=== PATIENT | female | born 1980 | race African-American/Black ===

== ENCOUNTER 2018-12-26 21:00 | Emergency (ER) | payer SELFPAY, OTHER | END 2018-12-26 22:41 | disposition home or self-care (01) | LOC: FER 21:00 ==

== ENCOUNTER 2018-12-30 21:29 | Emergency (ER) | payer SELFPAY ==
--- NOTE | 2018-12-30 21:49 | PDOC ---
Rapid Medical Evaluation Time Seen by Provider: 12/30/18 21:47 Medical Evaluation: Allergies Allergy/AdvReac Type Severity Reaction Status Date / Time No Known Allergies Allergy Verified 12/26/18 21:10 12/30/18 21:48 I have performed a brief in-person evaluation of this patient. The patient presents with a chief complaint of: left knee pain and back pain s/ p fall 5 days ago. Pertinent physical exam findings: negative w/u 12/26. No focal findings I have ordered the following: nothing The patient will proceed to the ED for further evaluation. 12/30/18 21:49 Discharge Disposition - Diagnosis Low back strain, Left knee pain - Referrals - Patient Instructions - Post Discharge Activity
[2018-12-30 21:54] VITALS: BP 120/68; PULSE 69; TEMP 97.8; BMI 26.6
[2018-12-30] MEDS ORDERED: ACETAMINOPHEN 325 MG TABLET (FP) ONE (21:59)
--- NOTE | 2018-12-30 22:16 | PDOC ---
History of Present Illness - General Chief Complaint: Pain Stated Complaint: FALL BACK PAIN Time Seen by Provider: 12/30/18 21:47 History Source: Patient - History of Present Illness Initial Comments: 12/30/18 22:34 Chief complaint: Neck and knee pain pt is a healthy 38-year-old female who fell the other day at work, and was seen and thousand very ER, she had x-rays done which were negative. Patient is not taking pain medicine, does not want to take pain medicine. Patient is ambulatory. Patient states that her knee hurts and her back is burning. Patient has no numbness or tingling. Patient came to the ER after talking to her boss to get further evaluations, specifically MRIs. GENERAL/CONSTITUTIONAL: No fever, weakness. dizziness HEAD, EYES, EARS, NOSE AND THROAT: No change in vision. No ear pain or discharge. No sore throat. CARDIOVASCULAR: No chest pain RESPIRATORY: No shortness of breath or cough GASTROINTESTINAL: No pain, nausea, vomiting, diarrhea or constipation GENITOURINARY: No dysuria MUSCULOSKELETAL: No neck + back pain, + left knee SKIN: No rash NEUROLOGIC: No headache, vertigo, loss of consciousness, or loss of sensation. GENERAL: The patient is awake, alert, and fully oriented, in no acute distress. HEAD: Normal with no signs of trauma. EYES: Pupils equal, round and reactive to light, sclera anicteric, conjunctiva clear. ENT: pharynx: no erythema, no exudate, uvula midline NECK: supple CHEST: clear, nontender, rr ABD: soft, nontender BACK: mild general minimal tenderness EXTREMITIES: Left knee with mild anterior tenderness, painful range of motion, no deformity, crepitus, patient is able to flex and extend, neurovascular intact. Rest of extremities, normal range of motion, no edema. NEUROLOGICAL: Normal speech, normal gait. SKIN: Warm, Dry Past History - Past Medical History Allergies/Adverse Reactions: Allergies Allergy/AdvReac Type Severity Reaction Status Date / Time No Known Allergies Allergy Verified 12/26/18 21:10 Home Medications: Ambulatory Orders No Home Medications 0 dose .ROUTE UTDICT 08/01/13 Asthma: Yes COPD: No - Reproductive History (#): 5 Para: 1 Spontaneous : 3 - Suicide/Smoking/Psychosocial Hx Smoking Status: No Smoking History: Never smoked Have you smoked in the past 12 months: No Number of Cigarettes Smoked Daily: 0 Hx Alcohol Use: No Drug/Substance Use Hx: No *Physical Exam - Vital Signs Last Vital Signs Temp Pulse Resp BP Pulse Ox 97.8 F 69 20 120/68 98 12/30/18 21:51 12/30/18 21:51 12/30/18 21:51 12/30/18 21:51 12/30/18 21:51 Medical Decision Making - Medical Decision Making 12/30/18 22:36 Healthy 38-year-old female who fell in the last few days, was seen at.x-ray ER, had x-rays and comes back to the ER for further evaluation, interested in having MRIs due to pain. Patient was offered pain medicine again, she does not want to take pain medicine. Explained to patient why MRIs are not indicated in the ER tonight. That she will have to follow up with orthopedist. She can use Warm compresses and warm showers at this point. Patient will be given information for referral for orthopedist follow-up. Discussed issues, findings, results, applicable medications and treatments and follow-up. All these were understood and all questions were answered *DC/Admit/Observation/Transfer Diagnosis at time of Disposition: Low back strain Qualifiers: Encounter type: initial encounter Qualified Code(s): S39.012A - Strain of muscle, fascia and tendon of lower back, initial encounter Left knee pain Qualifiers: Chronicity: unspecified Qualified Code(s): M25.562 - Pain in left knee - Discharge Dispostion Disposition: HOME Condition at time of disposition: Stable - Referrals Referrals: Thomas Huerta MD [Staff Physician] - Camron العلي DO [Staff Physician] - - Patient Instructions Additional Instructions: If you decide to take medicine you can take Motrin 600 mg every 6 hours. You can apply warm compresses to the areas. Call the orthopedist on Wednesday, make an appointment for next week for further evaluation - Post Discharge Activity
== END 2018-12-30 23:20 | disposition home or self-care (01) ==
LOC: JERFT 21:29
DX: S39.012D Strain of muscle, fascia and tendon of lower back, subsequent encounter (principal); M25.562 Pain in left knee; W01.0XXD Fall on same level from slipping, tripping and stumbling without subsequent striking against object, subsequent encounter
CPT/HCPCS: 99281-25

== ENCOUNTER 2021-02-24 15:53 | Emergency (ER) | payer OTHER ==
[2021-02-24 16:12] VITALS: BP 128/75; PULSE 83; TEMP 98.4; BMI 35.5
[2021-02-24] MEDS ORDERED: predniSONE 20 MG TABLET (UD) PO ONE (16:48)
[2021-02-24] MEDS ORDERED: predniSONE 20 MG TABLET (UD) ONE (16:49)
== END 2021-02-24 17:02 | disposition home or self-care (01) ==
LOC: JERFT 15:53
DX: L23.9 Allergic contact dermatitis, unspecified cause (principal)
CPT/HCPCS: 99283-25

== ENCOUNTER 2021-03-16 07:32 | Emergency (ER) | payer OTHER ==
[2021-03-16 07:54] VITALS: BP 136/90; PULSE 71; TEMP 98; BMI 32.3
[2021-03-16] MEDS ORDERED: DEXAMETHASONE SOD PHOSPHATE 10 MG/1 ML VIAL IM ONE (08:08)
[2021-03-16] MEDS ORDERED: FAMOTIDINE 20 MG TABLET PO ONE (08:09)
[2021-03-16] MEDS ORDERED: DEXAMETHASONE SOD PHOSPHATE 10 MG/1 ML VIAL ONE (08:24)
[2021-03-16] MEDS ORDERED: FAMOTIDINE 20 MG TABLET ONE (08:24)
== END 2021-03-16 08:40 | disposition home or self-care (01) ==
LOC: JERFT 07:32
PROC: 3E023GC Introduction of Other Therapeutic Substance into Muscle, Percutaneous Approach (ICD-10-PCS; principal; 2021-03-16)
DX: L23.9 Allergic contact dermatitis, unspecified cause (principal)
CPT/HCPCS: 96372; 99284-25; J1100

== ENCOUNTER 2021-12-27 08:42 | Emergency (ER) | payer OTHER ==
[2021-12-27 08:50] VITALS: BP 128/81; PULSE 94; TEMP 98.7; BMI 36.6
[2021-12-27] MEDS ORDERED: predniSONE 20 MG TABLET (UD) PO ONE (09:26)
[2021-12-27] MEDS ORDERED: predniSONE 20 MG TABLET (UD) ONE (09:27)
== END 2021-12-27 10:00 | disposition home or self-care (01) ==
LOC: JERFT 08:42
DX: L30.9 Dermatitis, unspecified (principal)
CPT/HCPCS: 99283-25

== ENCOUNTER 2022-06-15 21:30 | Emergency (ER) | payer OTHER ==
[2022-06-15 21:35] VITALS: BP 150/101; PULSE 97; RESP 18; TEMP 98.2; BMI 35.2
[2022-06-15 22:57] LABS: HEMATOCRIT 41.1 % (32.4-45.2); HEMOGLOBIN 14.1 G/dL (10.7-15.3); MCH 28.4 pg (25.7-33.7); MCHC 34.2 g/dl (32.0-36.0); MEAN PLT VOLUME 7.4 fl (7.5-11.1); PLATELET COUNT 337.6 10^3/uL (134-434); RBC 4.95 10^6/uL (3.60-5.2)
[2022-06-15 23:06] LABS: BILIRUBIN,TOTAL 0.5 mg/dl (0.2-1); CALCIUM 9.3 mg/dl (8.5-10); CREATININE 0.7 mg/dl (0.55-1.3); TOT PROT 7.9 g/dl (6.4-8.2)
== END 2022-06-15 23:43 | disposition home or self-care (01) ==
LOC: FER 21:30
DX: L30.9 Dermatitis, unspecified (principal)
CPT/HCPCS: 36415; 80053; 81003; 81015; 85027; 99283-25

== ENCOUNTER 2023-01-30 17:48 | Emergency (ER) | payer OTHER ==
[2023-01-30 17:57] VITALS: BP 123/79; PULSE 67; RESP 18; TEMP 98.4
[2023-01-30] MEDS ORDERED: LIDOCAINE 5% TOPICAL PATCH TP ONE (18:59)
[2023-01-30] MEDS ORDERED: IBUPROFEN 600 MG TABLET (FP) PO ONE ×2 (18:59→19:09)
[2023-01-30] MEDS ORDERED: ACETAMINOPHEN 500 MG TABLET (FP) PO ONE (18:59)
[2023-01-30] MEDS ORDERED: CYCLOBENZAPRINE HCL 10 MG TABLET (FP) PO ONE (18:59)
[2023-01-30] MEDS ORDERED: ACETAMINOPHEN 500 MG TABLET (FP) ONE (19:09)
[2023-01-30] MEDS ORDERED: CYCLOBENZAPRINE HCL 10 MG TABLET (FP) ONE (19:09)
[2023-01-30] MEDS ORDERED: LIDOCAINE 5% TOPICAL PATCH ONE (19:09)
[2023-01-30] MEDS ORDERED: LIDOCAINE PATCH REMOVAL MC SCH (22:00)
== END 2023-01-30 19:49 | disposition home or self-care (01) ==
LOC: JERFT 17:48
DX: M25.511 Pain in right shoulder (principal); M54.50 Low back pain, unspecified; V89.2XXA Person injured in unspecified motor-vehicle accident, traffic, initial encounter; Y93.I9 Activity, other involving external motion; Y92.9 Unspecified place or not applicable
CPT/HCPCS: 99283-25